=== PATIENT | female | born 1970 | race Caucasian/White ===

== ENCOUNTER 2018-05-31 18:53 | Emergency (ER) | payer MEDICAID ==
[~2018-05-31] VITALS: Ht 172.7 cm; Wt 68.0 kg
[2018-05-31] MEDS ORDERED: AUGMENTIN 875875 MG PO (20:39)
== END 2018-05-31 20:34 | disposition home or self-care (01) ==
LOC: ED 18:53
DX: S61.431A Puncture wound without foreign body of right hand, initial encounter (principal); Z88.6 Allergy status to analgesic agent; Z88.5 Allergy status to narcotic agent; W54.0XXA Bitten by dog, initial encounter; Y93.89 Activity, other specified; Y92.89 Other specified places as the place of occurrence of the external cause; Y99.8 Other external cause status

== ENCOUNTER 2019-05-02 20:30 | Emergency (ER) | payer MEDICAID ==
[~2019-05-02] VITALS: Wt 68.0 kg
[~2019-05-02 20:30] MED LIST: AUGMENTIN 875875 MG PO
[2019-05-03] MEDS ORDERED: Motrin,Rufen800 MG PO (00:42)
[2019-05-03] MEDS ORDERED: KEFLEX500 M1 PO (00:42)
== END 2019-05-02 23:26 | disposition home or self-care (01) ==
LOC: ED 20:30
DX: S87.82XA Crushing injury of left lower leg, initial encounter (principal); S87.81XA Crushing injury of right lower leg, initial encounter; Z88.6 Allergy status to analgesic agent; W23.0XXA Caught, crushed, jammed, or pinched between moving objects, initial encounter; Y93.89 Activity, other specified; Y92.89 Other specified places as the place of occurrence of the external cause; Y99.8 Other external cause status

== ENCOUNTER 2024-12-07 11:45 | Emergency (ER) | payer MEDICAID ==
[~2024-12-07] VITALS: Ht 172.7 cm; Wt 54.4 kg
[~2024-12-07 11:45] MED LIST changes: +KEFLEX500 M1 PO; +Motrin,Rufen800 MG PO
[2024-12-07] MEDS ORDERED: Ketorolac Tromethamine 15 MG/ML VIAL IM ONE (14:05)
[2024-12-07] MEDS ORDERED: METHOCARBAMOL 500 MG TAB PO ONE (14:05)
[2024-12-07] MEDS ORDERED: methylPREDNISolone sod succ 125 MG VIAL IM ONE (14:05)
[2024-12-07] MEDS ORDERED: PREDNISONE50 MG PO (14:21)
[2024-12-07] MEDS ORDERED: METHOCARBAMOL500 M1 PO (14:21)
[2024-12-07] MEDS ORDERED: NAPROSYN500 MG PO (14:21)
== END 2024-12-07 14:45 | disposition home or self-care (01) ==
LOC: ED 11:45
DX: M54.32 Sciatica, left side (principal); Z79.899 Other long term (current) drug therapy; Z88.5 Allergy status to narcotic agent; Z88.6 Allergy status to analgesic agent; Z98.890 Other specified postprocedural states